=== PATIENT | male | born 1945 | race Caucasian/White ===

== ENCOUNTER → 2024-07-08 09:32 | Outpatient (REF) | payer MEDICARE, OTHER, SELFPAY ==
[2024-07-08 10:04] LABS: % Basophils 0.3 % (0-2); % Eosinophils 3.8 % (0-6); % Immature Granulocytes 0.4 % (0-0.5); % Lymphocytes 20.2 % (20.5-51.1); % Monocytes 9.8 % (1.7-9.3); % Neutrophils 65.5 % (42.2-75.2); Absolute Eosinophils 0.3 10^3/uL (0-0.7); Absolute Lymphocytes 1.5 10^3/uL (1.2-3.4); Absolute Monocytes 0.7 10^3/uL (0.1-0.6); Absolute Neutrophils 4.9 10^3/uL (1.4-6.5); Hematocrit 45.1 % (39.0-52.0); Mean Corpuscular Hgb 27.2 pg (27.0-31.0); Mean Corpuscular Volume 87.6 fL (80.0-94.0); Mean Platelet Volume 10.1 fL (7.4-10.4); Nucleated Red Blood Cells % 0 % (-); Platelet Count 243 10^3/uL (130-400); Red Blood Cell Count 5.15 10^6/uL (4.70-6.10); Red Cell Dist. Width 16.2 % (11.5-14.5); White Blood Cell Count 7.4 10^3/uL (4.8-10.8)
[2024-07-08 13:20] LABS: Blood Urea Nitrogen 26 mg/dl (9-20); Calcium 9.8 mg/dl (8.4-10.2); Carbon Dioxide 30 mmol/L (22-30); Chloride 102 mmol/L (98-107); Glucose 114 mg/dl (70-99); HDL Cholesterol 49 mg/dl; LDL Cholesterol, Calculated 112 mg/dl; Potassium 5.6 mmol/L (3.5-5.1); Sodium 142 mmol/L (135-145); Total Cholesterol 178 mg/dl (50-199); Triglyceride 87 mg/dl (10-149); Very Low Density Lipoprotein 17 mg/dl (0-30); eGFR 56.58
== END ==
LOC: REG 09:32
PROVIDERS: ATTENDING PHYSICIAN Internal Medicine Cardiovascular Disease; FAMILY PHYSICIAN Family Medicine
DX: I48.0 Paroxysmal atrial fibrillation (principal); Z95.1 Presence of aortocoronary bypass graft; E78.5 Hyperlipidemia, unspecified; I10 Essential (primary) hypertension
CPT/HCPCS: 36415; 80048; 80061; 85025

== ENCOUNTER → 2024-12-19 07:15 | Outpatient (REF) | payer MEDICARE, OTHER, SELFPAY ==
[2024-12-19 09:06] LABS: ALT (SGPT) 27 U/L (0-50); AST (SGOT) 28 U/L (17-59); Albumin 4.2 g/dl (3.5-5.0); Alkaline Phosphatase 76 U/L (38-126); Blood Urea Nitrogen 27 mg/dl (9-20); Calcium 9.5 mg/dl (8.4-10.2); Carbon Dioxide 27 mmol/L (22-30); Chloride 110 mmol/L (98-107); Glucose 102 mg/dl (70-99); Potassium 4.8 mmol/L (3.5-5.1); Sodium 144 mmol/L (135-145); Total Bilirubin 0.7 mg/dl (0.2-1.3); Total Protein 7.1 g/dl (6.3-8.2); eGFR > 60.00
== END ==
LOC: REG 07:15
PROVIDERS: ATTENDING PHYSICIAN Internal Medicine Cardiovascular Disease
DX: Z95.1 Presence of aortocoronary bypass graft (principal); I11.9 Hypertensive heart disease without heart failure; I50.31 Acute diastolic (congestive) heart failure
CPT/HCPCS: 36415; 80053

== ENCOUNTER → 2024-12-23 07:01 | Outpatient (REF) | payer MEDICARE, OTHER, SELFPAY | LOC: RAD 07:01 | PROVIDERS: ATTENDING PHYSICIAN Internal Medicine Cardiovascular Disease | DX: R00.1 Bradycardia, unspecified (principal); I71.40 Abdominal aortic aneurysm, without rupture, unspecified | CPT/HCPCS: 74170; Q9967 ==